=== PATIENT | male | born 1940 | race Caucasian/White ===

== ENCOUNTER 2018-06-02 16:19 | Emergency (ER) | payer OTHER ==
[~2018-06-02 16:19] MED LIST: ALTEPLASE 100 MG INJ; AMIODARONE 150 MG INJ; EPINEPHrine 0.1 MG/ML SYG; MAGNESIUM SULFATE 1 GM/100 ML D5W IVPB
[2018-06-02] MEDS ORDERED: NORepinephrine 8MG/250 ML (PMX 250 ML (16:39)
== END 2018-06-02 21:09 | disposition expired ==
LOC: E/R 16:19
DX: I46.9 Cardiac arrest, cause unspecified (principal); I26.09 Other pulmonary embolism with acute cor pulmonale; J96.00 Acute respiratory failure, unspecified whether with hypoxia or hypercapnia
CPT/HCPCS: 31500; 92950; 93005; 99285-25